=== PATIENT | male | born 1935 | race Caucasian/White ===

== ENCOUNTER → 2017-03-27 | Outpatient (CLI) | payer MEDICARE, BC ==
[~2017-03-27] MED LIST: CALCIUM 600 +1 EAC5 PO; CASODEX PO; ELIGARD45 MG; FISH OIL 1,0001 EACH PO; HYDROCHLOROTHIA25 MG PO; LIPITOR40 MG PO; LO-DOSE ASPIRIN81 M1 PO; LOTENSIN20 MG PO; MULTI VITAMIN1 EACH PO; PRILOSEC PO
--- NOTE | ~2017-03-27 | ST ---
Unit #: [id number] #: [id number] Patient: TOMASA PRUITT [id number] [address] [address] [id number] O MR#: [id number] NAME: TOMASA PRUITT : 1935 SEX: M STUDY DATE/TIME: 03/27/2017 UNIT: CN ROOM: STUDY DESCRIPTION: Stress nuclear and ECG comb. Attending Physician: Preet Ventura M.D. Referring Physician: Preet Ventura M.D. Primary Care Physician: Handy Ko M.D. CARDIOLOGY REPORT INDICATION Chest discomfort, dyspnea, hypertension, dyslipidemia, known coronary artery disease with stenting x2. SUMMARY The patient exercised under Rian protocol to maximal effort. Patient completed 5 minutes and 15 seconds of exercise. Heart rate increased from 58 to 122 (87%) and blood pressure increased 166/86 to 170/85. The rest and stress ECG showed no diagnostic ST shifts. There was consider baseline artifact with stress. There were single APCs noted post exercise only. Perfusion images demonstrate diaphragmatic artifact at both rest and stress, and intestinal artifact, more present at rest and at stress. Otherwise perfusion is normal and equivalent between rest and stress. Planar images demonstrate no significant patient motion either at rest or stress. There is no significant lung uptake, LV or RV enlargement. Summed stress scores is 1, summed difference scores is 1. Gated perfusion wall motion analysis demonstrates normal wall motion throughout the myocardium with end-diastolic volume at 71 mL, ejection fraction 65%. IMPRESSION 1. Myocardial perfusion scan demonstrates no ischemia or infarction. 2. Normal wall motion with excellent ejection fraction. 3. Normal stress ECG. Good exercise capacity based on the patient's age. 4. Hypertension at rest with normal blood pressure response. Normal heart rate response. 5. Normal study. Dictated by... Kwasi Martínez M.D. GEORGINA/maddy TD: 03/27/2017 12:24 JOB #: [id number] Unit #: [id number] #: [id number] Patient: TOMASA PRUITT CARDIOLOGY REPORT Page 1 of 1 X Kwasi Martínez MD CARDIOLOGY REPORT
== END | disposition home or self-care (01) ==
LOC: CNUC 07:31
DX: R07.9 Chest pain, unspecified (principal); I10 Essential (primary) hypertension; E78.5 Hyperlipidemia, unspecified; I25.10 Atherosclerotic heart disease of native coronary artery without angina pectoris
CPT/HCPCS: 78452; 93017; A9500

== ENCOUNTER → 2017-07-29 | Day surgery (SDC) | payer MEDICARE, BC ==
--- NOTE | ~2017-07-29 | OR ---
Unit #: [id number] #: [id number] Patient: TOMASA PRUITT [id number] [address] [place], [place] [address] [id number] O MR#: [id number] NAME: TOMASA PRUITT ROOM: Date of Procedure: 07/29/2017 Admission Date: 07/29/2017 Surgeon: Grover Cheatham Jr., M.D. : 1935 Attending Physician: Grover Cheatham Jr., M.D. Primary Care Physician: Handy Ko M.D. OPERATIVE REPORT INDICATIONS FOR PROCEDURE The patient is an 81-year-old white male, recently presented to the office complaining of intermittent abdominal pains. He had gone through a workup with a CT scan of the abdomen, which revealed thickening of the rectum and sigmoid of questionable significance as well as gallstones. It was felt he needed his gallbladder removed and this likely was causing abdominal pain, but also that he should have a colonoscopy prior to this. He is brought in this time for colonoscopy and subsequently will have this cholecystectomy in the next couple of days. PREOPERATIVE DIAGNOSIS Possible colitis, possible proctitis. POSTOPERATIVE DIAGNOSIS Diverticulosis of the colon without any significant colitis or evidence of any other changes to the cecum. The prep was only fair to poor. ANESTHESIA MAC anesthesia. PROCEDURE PERFORMED Flexible colonoscopy to the cecum. DESCRIPTION OF PROCEDURE The patient was positioned in Whitlock position with left side down. After being given MAC anesthesia, digital rectal examination was performed, which revealed no palpable mass or tenderness. No blood or stool in the rectal ampulla. Prostate was normal by palpation for his age. The Olympus colonoscope was advanced through the anal canal up the rectum and retroflexed down to the area of the anorectal region. There was no evidence of any fissures. No significant internal hemorrhoids. The scope was then straightened and advanced up in the rectosigmoid, in the sigmoid and descending colon areas, where there were multiple diverticula without evidence of diverticulitis. The scope was then advanced around the splenic flexure and the transverse colon, around hepatic flexure and ascending colon, down in the area of the cecum. The light from the tip of the scope could be seen transilluminating through right lower quadrant abdominal wall area. Multiple attempts advancing the scope up the distal ileum were unsuccessful. The scope was slowly removed. There were no tumors, polyps, cancer, or AVMs. No evidence of any colitis or acute diverticulitis. The caliber of the colon appeared normal throughout without any evidence of narrowing or obstruction. The scope was removed. The patient tolerated the procedure well and discharged in satisfactory Unit #: [id number] #: [id number] Patient: TOMASA PRUITT condition. Dictated by... Grover Cheatham Jr., Asim. JAVI/debora TD: 07/29/2017 16:06 JOB #: [id number] OPERATIVE REPORT Page 1 of 1 X Grover Cheatham MD X PROCEDURE OPERATIVE NOTE
--- NOTE | ~2017-07-29 | EKG ---
PATIENT: TOMASA PRUITT UNIT #: [id number] Ventricular Rate: 56 BPM Atrial Rate: 56 BPM P-R Interval: 182 ms QRS Duration: 104 ms Q-T Interval: 442 ms QTC Calculation(Bezet): 426 ms P [place]: 44 degrees Calculated R [place]: -51 degrees Calculated T [place]: -7 degrees Diagnosis Line: Sinus bradycardia Diagnosis Line: Left axis deviation Diagnosis Line: Inferior infarct , age undetermined Diagnosis Line: Abnormal ECG Diagnosis Line: Diagnosis Line: Confirmed by SAMANTHA TAVERA MD ([id number]) on Diagnosis Line: 07/29/2017 2:12:01 PM INTERPRETING MD: LIANG ALLISON
[2017-07-29 11:15] LABS: BASOPHIL# 0.1 X10e3 (0-0.3); BASOPHIL% 1.2 % (0-2.5); EOSINOPHIL# 0.2 X10e3 (0-0.7); EOSINOPHIL% 4.2 % (0.0-7.0); HEMATOCRIT 34.9 % (38.0-50.0); LYMPHOCYTE# 1.1 X10e3 (1.0-3.5); LYMPHOCYTE% 25.9 % (17.0-45.0); MEAN CELL VOLUME 88.6 FL (83-96); MEAN CORPUSCULAR HEMOGLOBIN 30.6 PG (28-34); MEAN CORPUSCULAR HGB CONC 34.5 g/dL (30-36); MEAN PLATELET VOLUME 8.6 FL (6.5-11.5); MONOCYTE# 0.3 X10e3 (0-1.0); MONOCYTE% 7.9 % (3.0-12.0); NEUTROPHIL# 2.6 X10e3 (1.5-7.1); NEUTROPHIL% 60.8 % (40-75); PLATELET COUNT 185 X10e3 (140-420); RED BLOOD COUNT 3.94 X10e (3.90-5.60); RED CELL DISTRIBUTION WIDTH 13.1 % (11.0-15.5); WHITE BLOOD COUNT 4.3 X10e3 (4.0-10.5)
[2017-07-29 11:17] LABS: DIFF IND NO
[2017-07-29 13:49] LABS: ALBUMIN SERUM 3.8 g/dL (3.5-5.0); BILIRUBIN,TOTAL 1.3 mg/dL (0.2-2.0); BUN/CREATININE RATIO 11.42; CALCIUM SERUM 9.3 mg/dL (8.4-10.2); CREATININE SERUM 1.4 mg/dL (0.6-1.4); GLOM FILT RATE Estimated 46.8 mL/min (>60); POTASSIUM 3.9 mmol/L (3.5-5.1); PROTEIN TOTAL SERUM 6.5 g/dL (6.0-8.3)
== END | disposition home or self-care (01) ==
LOC: COPS 09:38
PROVIDERS: Surgery
DX: K57.30 Diverticulosis of large intestine without perforation or abscess without bleeding (principal); I25.10 Atherosclerotic heart disease of native coronary artery without angina pectoris; I10 Essential (primary) hypertension; M19.90 Unspecified osteoarthritis, unspecified site; E78.5 Hyperlipidemia, unspecified; N40.0 Benign prostatic hyperplasia without lower urinary tract symptoms; K21.9 Gastro-esophageal reflux disease without esophagitis; Z87.442 Personal history of urinary calculi; Z88.0 Allergy status to penicillin; Z88.2 Allergy status to sulfonamides; Z88.8 Allergy status to other drugs, medicaments and biological substances; Z79.82 Long term (current) use of aspirin; Z79.899 Other long term (current) drug therapy; Z90.79 Acquired absence of other genital organ(s); Z96.653 Presence of artificial knee joint, bilateral; Z95.5 Presence of coronary angioplasty implant and graft; Z98.41 Cataract extraction status, right eye; Z98.42 Cataract extraction status, left eye; Z85.46 Personal history of malignant neoplasm of prostate
CPT/HCPCS: 80053; 82310; 83970; 85025; 93005

== ENCOUNTER → 2017-08-01 | Day surgery (SDC) | payer MEDICARE, BC ==
--- NOTE | ~2017-08-01 | OR ---
Unit #: [id number] #: [id number] Patient: TOMASA PRUITT [id number] [address] [place], [place] [address] [id number] O MR#: [id number] NAME: TOMASA PRUITT ROOM: Date of Procedure: 08/01/2017 Admission Date: 08/01/2017 Surgeon: Grover Cheatham Jr., M.D. : 1935 Attending Physician: Grover Cheatham Jr., M.D. Primary Care Physician: Handy Ko M.D. OPERATIVE REPORT INDICATION FOR PROCEDURE The patient is an 81-year-old white male, who has been having some recent problems with some biliary colic and right upper quadrant abdominal pain. He was worked up and noted to have evidence of cholecystitis, also found to have questionable colitis of the sigmoid colon and rectum, but on colonoscopy, this was not found. He is brought to the operating room at this time for laparoscopic cholecystectomy. He understands the procedure including the risks, including that of common duct injury, biliary leak, and bleeding, and intra-abdominal organ injury, and consents. PREOPERATIVE DIAGNOSES Chronic cholecystitis with cholelithiasis, possible colitis of the sigmoid. POSTOPERATIVE DIAGNOSES No evidence of colitis of the sigmoid, but evidence of chronic cholecystitis with cholelithiasis. The gallbladder itself was on a pedicle and hardly attached to the liver with multiple adhesions around it. ANESTHESIA General with endotracheal intubation and 0.5% Marcaine with epinephrine locally. PROCEDURES PERFORMED Laparoscopic lysis of adhesions with laparoscopic cholecystectomy. DESCRIPTION OF PROCEDURE The patient was positioned in supine position. After being anesthetized and intubated, he was prepped and draped in routine fashion for laparoscopic cholecystectomy. A small 0.5 cm incision was made in the right lateral abdominal wall area. A 5-mm Optiview introduced into the abdomen followed by the camera. There was no evidence of any injury related to introduction of the Optiview. The abdomen was inflated with CO2 gas. There was no evidence of any significant adhesions in the lower abdomen from his previous surgery. 0.5 cm incision was made just above the umbilicus and a 5-mm port introduced in this area and the camera shifted to this port. An additional 5-mm port was placed in the right lateral abdominal wall area and an 11-mm port just to the right of the upper midline. The right upper quadrant was checked after the entire abdomen was visualized. On visualization of the abdomen, there was no evidence of any colitis or other abnormalities in the pelvic area. The gallbladder was checked and was on a pedicle with almost no attachment to the gallbladder. There were multiple adhesions wrapping around it from Unit #: [id number] #: [id number] Patient: TOMASA PRUITT the omentum. These were taken down sharply and bluntly with the hook scissors and blunt dissection. After the gallbladder was mobilized, dissection was carried out on the triangle of Calot, cystic duct which was very long, was isolated, hemoclipped x4 and divided approximately a 1.5 cm from its junction with the common duct. It was only approximately 1 mm in diameter. The common duct appeared normal. Cystic artery was identified, hemoclipped x3, and divided. The gallbladder was then removed from the rest of the pedicle with the hook cautery using a current of 20. After it was released, it was removed through the upper midline incision along with the grasping clamp. The fascia was stretched some with a large Misty to allow for removal of the gallbladder with large stone. After it was removed, the port was replaced. Subhepatic space checked. There was no evidence of any bleeding from the gallbladder bed. The clips on cystic duct and cystic artery were intact with no evidence of any leak or bleeding. There was no evidence of any bleeding from the adhesions that were released as well. At this point, the ports were removed. There was no evidence of any bleeding from the port sites. The fascia in the larger port site was approximated with [id number] Vicryl suture. After the CO2 expressed from the abdomen, the wounds were irrigated. Hemostasis was achieved with Bovie cautery. The skin edges approximated with stainless-steel skin clips and skin stapling device. Sterile dressings were applied externally. Estimated blood loss less than 50 mL. The patient received less than 2000 mL crystalloid solution during the procedure. Sponges and instruments counts were correct x3. No drains were used. No complications. The patient was taken to the recovery room with stable vital signs in satisfactory condition. Dictated by... Grover Cheatham Jr., M.D. JMB/debora TD: 08/01/2017 12:24 JOB #: [id number] OPERATIVE REPORT Page 1 of 1 X Grover Cheatham MD PROCEDURE OPERATIVE NOTE
== END | disposition home or self-care (01) ==
LOC: CSUR 07:57
DX: K80.10 Calculus of gallbladder with chronic cholecystitis without obstruction (principal); N40.0 Benign prostatic hyperplasia without lower urinary tract symptoms; K21.9 Gastro-esophageal reflux disease without esophagitis; M19.90 Unspecified osteoarthritis, unspecified site; I25.10 Atherosclerotic heart disease of native coronary artery without angina pectoris; I10 Essential (primary) hypertension; E78.5 Hyperlipidemia, unspecified; Z88.0 Allergy status to penicillin; Z95.5 Presence of coronary angioplasty implant and graft; Z90.79 Acquired absence of other genital organ(s); Z88.8 Allergy status to other drugs, medicaments and biological substances; Z87.442 Personal history of urinary calculi; Z88.2 Allergy status to sulfonamides; Z79.82 Long term (current) use of aspirin; Z79.899 Other long term (current) drug therapy
CPT/HCPCS: 88304; J0330; J1100; J1650; J2405; J2710; J3010; J3370

== ENCOUNTER → 2017-08-05 | Outpatient (CLI) | payer MEDICARE, BC | END | disposition home or self-care (01) | LOC: CLAB 14:49 | DX: H18.6 Keratoconus (principal); H49.21 Sixth [abducent] nerve palsy, right eye | CPT/HCPCS: 36415; 85652; 86140 ==